=== PATIENT | male | born 1990 | race Asian ===

== ENCOUNTER → 2019-12-08 | Outpatient (CLI) | payer OTHER ==
[~2019-12-08] MED LIST: NONE PER PT
== END | disposition home or self-care (01) ==
LOC: STAR 12:03
PROVIDERS: ATTEND Anesthesiology
DX: Z01.812 Encounter for preprocedural laboratory examination (principal); Z20.828 Contact with and (suspected) exposure to other viral communicable diseases
CPT/HCPCS: 36415; 87635

== ENCOUNTER 2019-12-12 08:22 | Day surgery (SDC) | payer OTHER ==
[~2019-12-12] VITALS: Ht 177.8 cm; Wt 99.2 kg
[2019-12-12] MEDS ORDERED: LACTATED RINGERS 1,000 ML IV SCH (09:05)
[2019-12-12] MEDS ORDERED: FENTANYL PF 250 MCG/5ML ONE (09:06)
[2019-12-12] MEDS ORDERED: MIDAZOLAM 1 MG/ML, 2ML ONE (09:06)
[2019-12-12] MEDS ORDERED: NONE PER PT (09:06)
[2019-12-12] MEDS ORDERED: CHLORHEXIDINE 15 ML UDC ONE (09:13)
[2019-12-12] MEDS ORDERED: CHLORHEXIDINE 15 ML UDC MM ONE (09:30)
[2019-12-12 09:35] VITALS: BP 123/59
[2019-12-12] MEDS ORDERED: CEFAZOLIN 1,000 MG ONE (09:43)
[2019-12-12] MEDS ORDERED: ROCURONIUM 10 MG/ML,10ML ONE (09:43)
[2019-12-12] MEDS ORDERED: ONDANSETRON 2MG/ML, 2ML ONE (09:43)
[2019-12-12] MEDS ORDERED: NEOSTIGMINE 1 MG/ML, 10ML ONE (09:43)
[2019-12-12] MEDS ORDERED: PROPOFOL 10 MG/ML, 20ML ONE (09:43)
[2019-12-12] MEDS ORDERED: DEXAMETHASONE 4 MG/ML, 1ML ONE (09:43)
[2019-12-12] MEDS ORDERED: GLYCOPYRROLATE 0.2MG/1ML, 5ML ONE (09:43)
[2019-12-12] MEDS ORDERED: CLINDAMYCIN 150 MG/ML, 6ML ONE (09:53)
[2019-12-12] MEDS ORDERED: MEPERIDINE/PF 25MG/0.5ML IVPush PRN (10:30)
[2019-12-12] MEDS ORDERED: HYDROmorphone 1 MG/ML, 1ML INJ IVPush PRN (10:30)
[2019-12-12] MEDS ORDERED: OXYcodone 5 MG/5 ML ORAL.SOL UDC PO PRN (10:30)
[2019-12-12] MEDS ORDERED: PROMETHAZINE 25 MG/ML, 1ML IVPush PRN (10:30)
[2019-12-12] MEDS ORDERED: DIPHENHYDRAMINE 50 MG/ML, 1ML IVPush PRN (10:30)
[2019-12-12] MEDS ORDERED: ACETAMINOPHEN 325 MG TABLET PO PRN (10:30)
[2019-12-12] MEDS ORDERED: ONDANSETRON 2MG/ML, 2ML IVPush PRN (10:30)
[2019-12-12] MEDS ORDERED: HYDROmorphone 1 MG/ML, 1ML INJ ONE (11:34)
[2019-12-12] MEDS ORDERED: OXYcodone 5 MG/5 ML ORAL.SOL UDC ONE (11:34)
[2019-12-12] MEDS ORDERED: FENTANYL PF 100 MCG/2ML ONE (11:34)
[2019-12-12] MEDS: FENTANYL PF 100 MCG/2ML IV PRN ×2 (11:35→11:43)
== END 2019-12-12 13:15 | disposition home or self-care (01) ==
LOC: OUT 08:22
PROVIDERS: ATTEND Orthopaedic Surgery
DX: S29.011A Strain of muscle and tendon of front wall of thorax, initial encounter (principal); M25.511 Pain in right shoulder; F17.220 Nicotine dependence, chewing tobacco, uncomplicated; X58.XXXA Exposure to other specified factors, initial encounter; Y93.89 Activity, other specified; Y92.89 Other specified places as the place of occurrence of the external cause; Y99.8 Other external cause status; Z72.89 Other problems related to lifestyle
CPT/HCPCS: 24341; 64415; C1713; J0690; J1100; J2250; J2405; J2704; J2710; J3010; J7120